=== PATIENT | male | born 2000 | race Caucasian/White ===

== ENCOUNTER 2025-03-20 00:26 | Emergency (ER) | payer SELFPAY ==
[2025-03-20 00:30] VITALS: BP 132/94; PULSE 96; TEMP 36.4; O2SAT 98; BMI 20.7
--- OUTSIDE RECORDS SUMMARY | 2025-03-20 00:33 | XMS_ITS | Clinical Summary ---
Author Organization [facility] Address [address] [place] [address] Care Team Providers Care Quebracho Tanner Name Role Phone No, Physician Primary Care Provider Unavailabl e Allergies No known active allergies Medications No known medications Social History Tobacco Use Types Packs/Day Years Used Date Smoking Tobacco: Never Sex and Gender Information Value Date Recorded Sex Assigned at Not on file Legal Sex Male 11:54 AM EST Gender Identity Not on file Sexual Orientation Not on file Plan of Treatment Health Maintenance Due Date Last Done Comments Tetanus: Every 10yrs 2000 Wellness Visit 2003 Depression Screening/Follow- Up (PHQ-2/9) 2012 HIV Screening 2015 HPV Vaccines (1 - Male 3-dos e series) 2015 Hepatitis C Screening 2018 COVID-19 Vaccine ( - 2023-2 5 season) 2024 Influenza Vaccine (#1) 2025 Pneumococcal Vaccine: Ped or At-Risk Aged Out No longer eligible b ased on patient's age to complete this topic Insurance [facility] HMO/CHOICE PLUS/MARISSA/MAR[employer] Care Teams Quebracho Tanner Relationship Specialty Start Date End Date No, Physician [facility] PCP - General 10/10/16
--- NOTE | 2025-03-20 00:46 | PC.NURSE ---
Right nasal area has laceration. Right upper lip is swollen with laceration inside lip 2 missing upper teeth that appear to be right lateral incisor and right canine
--- NOTE | 2025-03-20 00:59 | ED_ITS ---
HPI HPI - Fall General Chief Complaint: Fall Stated Complaint: FALL Time Seen by Provider: 03/20/25 00:38 Source: patient Mode of arrival: walk-in Limitations: no limitations History of Present Illness HPI Narrative: cc - facial injuries Pt was playing adult hide and seek and tripped, landing face first into a wood pile. This occurred just prior to arrival. According to the patient and his friends, there was no LOC - but the pt sustained bruising to the right upper eyelid, bruising and swelling to the upper lip, two broke teeth and a laceration to the right nostril. Per the patient, tetanus is up to date. The patient admits to drinking 2-3 beers tonight. He appears lucid and appropriate and I do not detect slurred speech or altered mentation Related Data Home Medications �Medication �Instructions �Recorded �Confirmed No Known Home Medications 03/20/2503/02 Allergies Allergy/AdvReac Type Severity Reaction Status Date / Time No Known Drug Allergies Allergy Verified 03/20/25 00:37 Opioid HPI Opioid Management Most Recent Pain and Opioid Data: Last Pain Scale 3 Today, 00:30 PFSH PFSH Social History Little interest or pleasure in doing things: not at all Feeling down, depressed, or hopeless: not at all Exam Narrative Exam Narrative: Nurses note and vital signs reviewed and patient is not hypoxic. afebrile General: The patient appears well and in no apparent distress. Patient is resting comfortably on cart. GCS = 15. Skin: Warm, dry, no pallor noted. Head: Irregularly shaped laceration measuring 1.1 cm to the right nare. The underlying bony portion of the nose on the right appears to be depressed. There is swelling to the upper lip with a laceration noted on the underside of the upper lip. There is some bruising noted to the tip of the nose. Remainder of the face and scalp are normocephalic, atraumatic Neck: Supple, trachea mid-line, no tenderness, no lymphadenopathy. Full ROM and no cervical spinal tenderness. The patient has no step-offs or crepitus noted Eyes: PERRLA, EOMI. Mild swelling and bruising is noted to the right upper eyelid although the right eye appears unaffected. ENT: TM's clear, no hemotympanum detected, no blood in posterior oropharynx. Laceration on the underside of the upper lip, with associated lip swelling. 2 teeth are fractured and the underlying dentition appears carious. These are teeth #7 and 8. Cardiovascular: Regular Rate and Rhythm Respiratory: Patient is in no distress, no accessory muscle use, lungs are clear to auscultation, no wheezing, rales or rhonchi Chest Wall: no tenderness, no flail chest, contusion, abrasion, or signs of trauma. Back: No thoracic vertebral or lumbar vertebral tenderness to palpation. Negative straight leg raise bilaterally. No ecchymosis, abrasions, lacerations noted. Musculoskeletal: no sign of long bone fracture, no tenderness, no swelling. Pulses at femoral, DP, PT, and popiteal were 2+ bilaterally. Moves all four extremities in all modalities with 5/5 strength. GI: Normal bowel sounds, no tenderness to palpation, no masses appreciated. No rebound, guarding, or rigidity noted. Neurological: A&O x4, normal equal medical terminologist strength, normal finger to nose, normal speech, normal coordination, normal motor, normal sensory. Psychiatric: Cooperative Constitutional Vital Signs, click to edit/add: Last Vital Signs Temp 97.6 F 03/20/25 00:30 Pulse 73 03/20/25 02:05 Resp 16 03/20/25 02:05 BP 110/76 03/20/25 02:05 Pulse Ox 99 03/20/25 02:05 O2 Del Method Room Air 03/20/25 02:05 Course Vital Signs Vital signs: Vital Signs Temperature 97.6 F 03/20/25 00:30 Pulse Rate 96 H 03/20/25 00:30 Respiratory Rate 18 03/20/25 00:30 Blood Pressure 132/94 H 03/20/25 00:30 Pulse Oximetry 98 03/20/25 00:30 Oxygen Delivery Method Room Air 03/20/25 00:30 Temperature 97.6 F 03/20/25 00:30 Pulse Rate 73 03/20/25 02:05 Respiratory Rate 16 03/20/25 02:05 Blood Pressure 110/76 03/20/25 02:05 Pulse Oximetry 99 03/20/25 02:05 Oxygen Delivery Method Room Air 03/20/25 02:05 MDM - Fall MDM Narrative Medical decision making narrative: Patient sent for CT scanning of the head, facial bones and cervical spine. The patient received oral clindamycin since he had an odontogenic fracture with what appeared to be carious teeth. Laceration repair: All of the procedure was done under sterile conditions. Wound cleansed with betadine and anesthetized with local injection of approximately 2mL of lidocaine 1% with epinephrine. The wound was irrigated copiously with sterile normal saline. The wound was explored to depth and found to be free of foreign material. The laceration wound edges were well- approximated and did not require revision. Wound closed with 3 sterile 5-0 ethilon sutures in simple interrupted fashion. Patient tolerated the procedure well. The patient was neurovascularly intact post-repair. Topical bacitracin applied to the laceration and it was dressed with a dry sterile dressing. The patient will need to follow-up in the next 7-10 days for removal. The radiologist called and spoke to me about the patient's scans. Head CT and C-spine CT were unremarkable. Facial bones CT revealed acute right nasal fracture as well as acute right nasal spine fracture. Patient was informed of results and discharged home. Discharge Plan Discharge Chief Complaint: Fall Clinical Impression: Fracture of nasal bone, Laceration of nose Patient Disposition: Home, Self-Care Time of Disposition Decision: 03:16 Prescriptions / Home Meds: No Action No Known Home Medications Print Language: Danish Instructions: Nasal Fracture (ED), Facial Laceration (ED) Referrals: Physician,Non-Staff, MD [Primary Care Provider] - 1 week
[2025-03-20 01:00] VITALS: BP 96/65; PULSE 90; O2SAT 100
[2025-03-20] MEDS: CLINDAMYCIN HCL 150 MG CAPSULE 450 MG PO (01:13)
[2025-03-20] MEDS: LIDOCAINE HCL 1%-EPINEPHRINE 1:100,000 20 ML MDV INJ (01:13)
[2025-03-20] MEDS: BACITRACIN 0.9 GM PACKET 1 PACKET TOPICAL (01:14)
[2025-03-20 01:18] VITALS: BP 114/60; PULSE 91; O2SAT 96
[2025-03-20 02:05] VITALS: BP 110/76; PULSE 73; O2SAT 99
[2025-03-20] MEDS: ACETAMINOPHEN 500 MG TABLET 1000 MG PO (03:37)
== END 2025-03-20 03:47 | disposition home or self-care (01) ==
PROVIDERS: Emergency Provider Emergency Medicine
DX: S02.2XXA Fracture of nasal bones, initial encounter for closed fracture (principal); W01.198A Fall on same level from slipping, tripping and stumbling with subsequent striking against other object, initial encounter; S01.511A Laceration without foreign body of lip, initial encounter; S02.5XXA Fracture of tooth (traumatic), initial encounter for closed fracture; S01.21XA Laceration without foreign body of nose, initial encounter
CPT/HCPCS: 12011; 70450; 70486; 72125; 99284